=== PATIENT | female | born 1985 | race Caucasian/White ===

== ENCOUNTER 2018-10-28 12:26 | Emergency (ER) | payer MEDICAID ==
[~2018-10-28] VITALS: Ht 167.6 cm; Wt 82.0 kg
--- NOTE | 2018-10-28 13:05 | NUR ---
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
[2018-10-28] MEDS ORDERED: MAALOX/HYOSCYAMINE/LIDOCAINE 45 ML BTL PO ONE (13:30)
[2018-10-28] MEDS ORDERED: SODIUM CHLORIDE FLUSH 10ML SYR IVF ONE (13:30)
[2018-10-28] MEDS ORDERED: SODIUM CHLORIDE 0.9% 1,000ML IVBOLUS ONE (13:30)
[2018-10-28] MEDS ORDERED: MORPHINE SULFATE 4 MG/ML, 1ML IVPush PRN (13:30)
[2018-10-28] MEDS ORDERED: ONDANSETRON 2MG/ML, 2ML IVPush ONE (13:30)
[2018-10-28] MEDS ORDERED: FAMOTIDINE 20 MG/2 ML IVPush ONE (13:30)
[2018-10-28] MEDS ORDERED: MORPHINE SULFATE 4 MG/ML, 1ML ONE (13:31)
[2018-10-28] MEDS ORDERED: MAALOX/HYOSCYAMINE/LIDOCAINE 45 ML BTL ONE (13:31)
[2018-10-28] MEDS ORDERED: FAMOTIDINE 20 MG/2 ML ONE (13:31)
[2018-10-28] MEDS ORDERED: ONDANSETRON 2MG/ML, 2ML ONE (13:31)
[2018-10-28 13:43] LABS: INTERNATIONAL NORMALIZED RATIO 1.01 (0.93-1.1); PROTHROMBIN TIME 10.6 Seconds (9.6-11.5)
[2018-10-28 13:46] LABS: ALANINE AMINOTRANSFERASE 18 U/L (12-78); ALBUMIN 4.1 g/dL (3.4-5.0); ANION GAP 6 mmol/L (5-15); CALCIUM 9.8 mg/dL (8.5-10.1); CHLORIDE 109 mmol/L (98-107); CREATININE 0.84 mg/dL (0.55-1.02)
[2018-10-28 13:53] LABS: ALKALINE PHOSPHATASE 100 U/L (45-117); BILIRUBIN,TOTAL 0.4 mg/dL (0.2-1.0); TOTAL PROTEIN 7.5 g/dL (6.4-8.2)
[2018-10-28 13:55] LABS: MEAN CORPUSCULAR HEMOGLOBIN 28.6 pg (27.0-34.8); MEAN CORPUSCULAR HGB CONC 33.2 g/dL (32.4-35.8); MEAN CORPUSCULAR VOLUME 86.2 fL (80-100); NEUTROPHILS % (AUTO) 66 % (42-75); PLATELET COUNT 327 x10^3/uL (130-400); RED BLOOD COUNT 5.24 x10^6/uL (3.82-5.3); RED CELL DISTRIBUTION WIDTH 17.7 % (9.6-15.2)
[2018-10-28 13:56] LABS: BASOPHILS # (AUTO) 0.05 x10^3/uL (0-0.1); BASOPHILS % (AUTO) 0 % (0-1); EOSINOPHILS % (AUTO) 1 % (1-7); LYMPHOCYTES # (AUTO) 2.92 x10^3/uL (1-3.4); LYMPHOCYTES % (AUTO) 25 % (22-44); MD NO; MONOCYTES # (AUTO) 0.86 x10^3/uL (0.2-0.8); MONOCYTES % (AUTO) 7 % (2-9); NEUTROPHILS # (AUTO) 7.65 x10^3/uL (1.8-6.8)
[2018-10-28 14:02] LABS: MICROSCOPIC INDICATED
[2018-10-28 14:21] LABS: CULTURE INDICATED? YES
[2018-10-28 15:06] VITALS: BP 126/71
== END 2018-10-28 15:09 | disposition home or self-care (01) ==
LOC: ED 14:56
DX: K29.00 Acute gastritis without bleeding (principal); K21.9 Gastro-esophageal reflux disease without esophagitis
CPT/HCPCS: 36415; 74021; 80053; 81001; 84703; 85025; 85610; 87086; 96361; 96374; 96375; 99284; J2270; J2405; J3490; J7030

== ENCOUNTER 2020-08-20 12:47 | Emergency (ER) | payer MEDICAID ==
--- NOTE | 2020-08-20 13:34 | NUR ---
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
--- NOTE | 2020-08-20 13:42 | NUR ---
digester: attempted to call pt for triage, no answer in lobby
--- NOTE | 2020-08-20 14:50 | NUR ---
clinical dietetic technician: attempted to call pt for triage, no answer in lobby
== END 2020-08-20 14:52 | disposition left against medical advice (07) ==
LOC: ED 13:44
DX: R07.81 Pleurodynia (principal); Z53.21 Procedure and treatment not carried out due to patient leaving prior to being seen by health care provider

== ENCOUNTER 2020-11-04 09:09 | Inpatient (IN) | payer MEDICAID ==
[~2020-11-04] VITALS: Ht 170.2 cm; Wt 76.6 kg
[2020-11-04 09:15] VITALS: BP 162/98
[2020-11-04] MEDS ORDERED: FENTANYL PF 100 MCG/2ML IV PRN (10:00)
[2020-11-04] MEDS ORDERED: ONDANSETRON 2MG/ML, 2ML IVPush PRN (10:00)
[2020-11-04] MEDS: D5%-LACTATED RINGERS 1,000 ML IV SCH ×2 (10:00→18:00)
[2020-11-04] MEDS ORDERED: OXYTOCIN 30U/ 0.9% NaCL 500ML 500 ML IV PRN ×2 (10:00→16:30)
[2020-11-04] MEDS ORDERED: TERBUTALINE 1 MG/ML, 1ML SQ PRN (10:00)
[2020-11-04] MEDS ORDERED: TERBUTALINE 1 MG/ML, 1ML IVPush PRN (10:00)
[2020-11-04] MEDS ORDERED: OXYTOCIN 30U/ 0.9% NaCL 500ML 500 ML IV ONE (10:00)
[2020-11-04] MEDS: LACTATED RINGERS 1,000 ML IV SCH ×4 (10:10→21:00)
[2020-11-04 10:16] LABS: MICROSCOPIC INDICATED
[2020-11-04] MEDS ORDERED: FENTANYL PF 100 MCG/2ML ONE (10:17)
[2020-11-04] MEDS: FENTANYL PF 100 MCG/2ML IVPush PRN ×2 (10:20→13:04)
[2020-11-04 10:28] LABS: BASOPHILS % (AUTO) 0 % (0-1); EOSINOPHILS % (AUTO) 0 % (1-7); LYMPHOCYTES % (AUTO) 19 % (22-44); MEAN CORPUSCULAR HEMOGLOBIN 28.2 pg (27.0-34.8); MEAN CORPUSCULAR HGB CONC 33.4 g/dL (32.4-35.8); MEAN PLATELET VOLUME 8.3 fL (7.4-10.4); MONOCYTES % (AUTO) 7 % (2-9); NEUTROPHILS % (AUTO) 73 % (42-75); PLATELET COUNT 255 x10^3/uL (130-400); RED BLOOD COUNT 4.26 x10^6/uL (3.82-5.3); RED CELL DISTRIBUTION WIDTH 15.8 % (9.6-15.2)
[2020-11-04] MEDS: PLEASE ENTER HEIGHT AND WEIGHT MC SCH ×2 (10:30→18:30)
[2020-11-04 10:33] LABS: AMPHETAMINE SCREEN, URINE Negative (Negative); BARBITURATE SCREEN, URINE Negative (Negative); BENZODIAZEPINE SCREEN, URINE Negative (Negative); CANNABINOID SCREEN, URINE Positive (Negative); COCAINE SCREEN, URINE Negative (Negative); METHADONE SCREEN, URINE Negative (Negative); OPIATE SCREEN, URINE Negative (Negative); TOTAL PROTEIN,URINE RANDOM < 5 mg/dL (0-12)
[2020-11-04 10:36] LABS: ALANINE AMINOTRANSFERASE 12 U/L (12-78); ALBUMIN 2.3 g/dL (3.4-5.0); ANION GAP 6 mmol/L (5-15); CALCIUM 8.5 mg/dL (8.5-10.1); CHLORIDE 109 mmol/L (98-107); CREATININE 0.59 mg/dL (0.55-1.02)
[2020-11-04 10:37] LABS: BILIRUBIN, DIRECT < 0.1 mg/dL (0.1-0.2)
[2020-11-04 10:39] LABS: ALKALINE PHOSPHATASE 235 U/L (45-117); BILIRUBIN,TOTAL 0.2 mg/dL (0.2-1.0); TOTAL PROTEIN 6.6 g/dL (6.4-8.2)
[2020-11-04] MEDS ORDERED: OXYTOCIN 30U/ 0.9% NaCL 500ML 500 ML ONE (11:33)
[2020-11-04] MEDS ORDERED: NALOXONE 0.4 MG/ML, 1ML IVPush PRN (13:00)
[2020-11-04] MEDS ORDERED: FENTANYL/BUPIV./NS/PF 250 ML EPIDCONT SCH (13:00)
[2020-11-04] MEDS ORDERED: EPHEDRINE 50 MG/ML, 1ML IVPush PRN (13:00)
[2020-11-04] MEDS: LACTATED RINGERS 1,000 ML IVBOLUS PRN ×2 (13:06→18:38)
[2020-11-04] MEDS ORDERED: BUPIVACAINE 0.25% ONE (13:29)
[2020-11-04] MEDS ORDERED: LIDOCAINE-MPF 2% ,5ML ONE (19:13)
[2020-11-04] MEDS ORDERED: NEWBORN KIT ONE ×2 (19:20→20:02)
[2020-11-04] MEDS: OXYTOCIN 30U/ 0.9% NaCL 500ML 500 ML IV SCH (20:00)
[2020-11-04] MEDS ORDERED: OXYcodone/APAP 5/325MG TABLET PO PRN (20:00)
[2020-11-04] MEDS ORDERED: MISOPROSTOL 200 MCG TABLET PR PRN ×2 (20:00)
[2020-11-04] MEDS: IBUPROFEN 600 MG TABLET PO PRN (20:00)
[2020-11-04] MEDS ORDERED: SIMETHICONE 80 MG CHEW TAB PO PRN (20:00)
[2020-11-04] MEDS ORDERED: DOCUSATE 100 MG CAPSULE PO PRN (20:00)
[2020-11-04 22:55] VITALS: BP 137/86
[2020-11-05] MEDS: OXYcodone/APAP 5/325MG TABLET PO PRN ×3 (00:08→08:59)
[2020-11-05] MEDS: LACTATED RINGERS 1,000 ML IV SCH ×2 (02:00→05:00)
[2020-11-05] MEDS: D5%-LACTATED RINGERS 1,000 ML IV SCH (02:00)
[2020-11-05] MEDS: PLEASE ENTER HEIGHT AND WEIGHT MC SCH (02:30)
[2020-11-05] MEDS: IBUPROFEN 600 MG TABLET PO PRN (04:25)
[2020-11-05 04:45] VITALS: BP 145/99
[2020-11-05 04:48] LABS: BASOPHILS % (AUTO) 1 % (0-1); EOSINOPHILS % (AUTO) 0 % (1-7); LYMPHOCYTES % (AUTO) 17 % (22-44); MEAN CORPUSCULAR HEMOGLOBIN 28.4 pg (27.0-34.8); MEAN CORPUSCULAR HGB CONC 33.3 g/dL (32.4-35.8); MEAN PLATELET VOLUME 8.5 fL (7.4-10.4); MONOCYTES % (AUTO) 6 % (2-9); NEUTROPHILS % (AUTO) 76 % (42-75); PLATELET COUNT 214 x10^3/uL (130-400); RED BLOOD COUNT 3.79 x10^6/uL (3.82-5.3); RED CELL DISTRIBUTION WIDTH 15.8 % (9.6-15.2)
[2020-11-05] MEDS: OXYTOCIN 30U/ 0.9% NaCL 500ML 500 ML IV SCH (06:00)
[2020-11-05 07:20] VITALS: BP 135/89
[2020-11-05] MEDS ORDERED: PRENATAL VIT/IRON/FA 1 EACH TABLET PO SCH (09:00)
[2020-11-05 12:00] VITALS: BP 127/83
[2020-11-05] MEDS ORDERED: IBUP-1222 PO (12:23)
[2020-11-05] MEDS ORDERED: DIPH,PERTUSS(ACELL),TET VAC/PF NC IM-VACC ONE ×2 (12:25→13:00)
== END 2020-11-05 13:08 | disposition home or self-care (01) | DRG 807 ==
LOC: LDOP 09:09 → LDIP 09:44 → 2NW 22:25
PROVIDERS: ADMIT Obstetrics & Gynecology; ATTEND Obstetrics & Gynecology
PROC: 0KQM0ZZ Repair Perineum Muscle, Open Approach (ICD-10-PCS; principal; 2020-11-04)
PROC: 10E0XZZ Delivery of Products of Conception, External Approach (ICD-10-PCS; 2020-11-04)
PROC: 3E0R3BZ Introduction of Anesthetic Agent into Spinal Canal, Percutaneous Approach (ICD-10-PCS; 2020-11-04)
PROC: 00HU33Z Insertion of Infusion Device into Spinal Canal, Percutaneous Approach (ICD-10-PCS; 2020-11-04)
DX: O70.1 Second degree perineal laceration during delivery (principal); Z37.0 Single live birth; Z3A.38 38 weeks gestation of pregnancy; Z88.0 Allergy status to penicillin; Z20.822 Contact with and (suspected) exposure to COVID-19
CPT/HCPCS: 36415; 80053; 80307; 81001; 82248; 82570; 83615; 84156; 84550; 85025; 86592; 86850; 86900; 87635; 90715; G0378; J3010; J2590; J7120